=== PATIENT | female | born 1940 ===

== ENCOUNTER 2020-09-01 08:16 | Day surgery (SDC) | payer OTHER ==
[~2020-09-01 08:16] MED LIST: COZAAR100 MG PO; CRESTOR40 MG PO; FORTAMET500 MG PO; TOPROL XL50 M1 PO
== END 2020-09-01 15:15 | disposition home or self-care (01) ==
LOC: CIR.AMB 08:16
PROVIDERS: ATTEND Orthopaedic Surgery
DX: S62.614A Displaced fracture of proximal phalanx of right ring finger, initial encounter for closed fracture (principal); S66.314A Strain of extensor muscle, fascia and tendon of right ring finger at wrist and hand level, initial encounter; Z20.822 Contact with and (suspected) exposure to COVID-19